=== PATIENT | female | born 1995 | race Caucasian/White ===

== ENCOUNTER 2025-06-16 06:32 | Day surgery (SDC) | payer OTHER ==
[2025-06-15 11:11] VITALS: BMI 26.5
[2025-06-16] MEDS ORDERED: Lidocaine 1% w/Epinephrine 1:200K 30 ML VIAL ONE (06:59)
[2025-06-16] MEDS ORDERED: Bacitracin 1 PK ONE (06:59)
[2025-06-16] MEDS ORDERED: AFRIN NASAL MIST 15 ML BOT ONE ×2 (06:59→07:49)
[2025-06-16] MEDS ORDERED: PROPOFOL 20 ML ONE (08:01)
[2025-06-16 08:05] LABS: Hematocrit 40.6 % (34.9-44.5)
[2025-06-16] MEDS ORDERED: Lidocaine 1% PF 5 ML VIAL ONE (08:12)
[2025-06-16 08:19] LABS: BHCG - Serum Negative (NEGATIVE); Pregs Control Background? CLEAR/WHITE (CLR/WHITE); Pregs Control Bar Appear? YES (CONTROL BAR)
[2025-06-16] MEDS ORDERED: Ondansetron PF 4 MG/2 ML Vial ONE (08:57)
[2025-06-16] MEDS ORDERED: Oxymetazoline HCl 0.05% (15 ML) ONE (08:58)
[2025-06-16] MEDS ORDERED: PHENYLEPHRINE-NS 100 MCG/ML 10 ML SYRINGE ONE (08:59)
[2025-06-16] MEDS ORDERED: SUGAMMADEX SODIUM 200 MG/2 ML VIAL ONE (09:01)
[2025-06-16] MEDS ORDERED: HYDROcodone/Acetaminophen 5/325 mg Tablet ONE (10:29)
== END 2025-06-16 11:10 | disposition home or self-care (01) ==
LOC: CSHSDC 06:32
PROVIDERS: ATTEND Specialist
PROC: 09BM0ZZ Excision of Nasal Septum, Open Approach (ICD-10-PCS; principal; 2025-06-16)
PROC: 09TL0ZZ Resection of Nasal Turbinate, Open Approach (ICD-10-PCS; principal; 2025-06-16)
DX: J34.2 Deviated nasal septum (principal); J34.3 Hypertrophy of nasal turbinates; R09.81 Nasal congestion
CPT/HCPCS: 36415; 84703; 85014; J1100; J2250; J2704